=== PATIENT | female | born 1965 | race Asian ===

== ENCOUNTER 2017-02-28 01:24 | Emergency (ER) | payer OTHER ==
[~2017-02-28] VITALS: Ht 154.9 cm; Wt 65.0 kg
[2017-02-28 01:27] VITALS: BP 131/83
[2017-02-28] MEDS ORDERED: SODIUM CHLORIDE 0.9% 1,000 ML IV ONE (01:46)
[2017-02-28] MEDS ORDERED: ONDANSETRON 2MG/ML, 2ML ONE (01:51)
[2017-02-28] MEDS ORDERED: SODIUM CHLORIDE FLUSH 10ML SYR IVF ONE (02:00)
[2017-02-28] MEDS ORDERED: SODIUM CHLORIDE 0.9% 1,000ML IVBOLUS ONE (02:00)
[2017-02-28] MEDS ORDERED: ONDANSETRON 2MG/ML, 2ML IVPush ONE (02:00)
[2017-02-28 02:14] LABS: ASPARTATE AMINO TRANSFERASE 12 U/L (15-37); BLOOD UREA NITROGEN 10 mg/dL (7-18)
[2017-02-28] MEDS ORDERED: KETOROLAC 30 MG/1 ML ONE (02:44)
[2017-02-28] MEDS ORDERED: PLEASE ENTER ALLERGIES MC SCH ×2 (03:00)
[2017-02-28] MEDS ORDERED: DICYCLOMINE 10 MG CAPSULE PO ONE (03:00)
[2017-02-28] MEDS ORDERED: KETOROLAC 30 MG/1 ML IVPush ONE (03:00)
[2017-02-28] MEDS ORDERED: HYDROcodone/APAP 5/325 TABLET PO ONE (03:30)
== END 2017-02-28 03:42 | disposition home or self-care (01) ==
LOC: ED 03:30
DX: K52.9 Noninfective gastroenteritis and colitis, unspecified (principal)
CPT/HCPCS: 36415; 80053; 83690; 85025; 93005; 96361; 96374; 96375; 99285; J1885; J2405; J7030